=== PATIENT | female | born 1970 | race Caucasian/White ===

== ENCOUNTER 2016-10-14 13:56 | Emergency (ER) | payer OTHER ==
[~2016-10-14] VITALS: Ht 165.1 cm; Wt 77.1 kg
--- NOTE | ~2016-10-14 | CR63 ---
[facility] A Service of [facility] RADIOLOGY TEXT RESULTS PATIENT: ANTHONY CONNELLY LOCATION: [place] : [birth year] UNIT #: [id number] AGE: [address]: Anthony Toro APRN SEX: F ORDER DR: [id number] [facility]. [place], [place] [address] [id number] E MR#: [id number] Acc #: [id number] NAME: ANTHONY CONNELLY. : 1970 SEX: F STUDY DATE/TIME: 10/14/2016 14:21 UNIT: [facility] ROOM: STUDY DESCRIPTION: CR Chest 2 View Attending Physician: Anthony Toro A.P.R.N. Ordering Physician: Ed Ras Foreman M.D. Primary Care Physician: Wily Riddle M.D. MEDICAL IMAGING REPORT This report is preliminary unless electronic signature is present EXAM PA and lateral chest HISTORY Shortness of air, body aches, fatigue for three days COMPARISON 01/25/2016 FINDINGS PA and lateral examination of the chest upright shows a good expansion of the parenchyma with a normal distribution of the pulmonary vascularity. There is no indication of congestion, effusion, infiltrate, tumor, or nodular density. The pleural reflections and diaphragmatic contours are normal. The cardiac silhouette and mediastinal anatomy is within normal limits. IMPRESSION Normal chest. Dictated by... Son Kwan M.D. THIS IS AN ELECTRONICALLY VERIFIED REPORT Son Kwan M.D. at 10/14/2016 10:19 PM FEL/to TD: 10/14/2016 19:57 JOB #: [id number] [facility] A Service [facility] RADIOLOGY TEXT RESULTS PATIENT: ANTHONY CONNELLY LOCATION: [facility] : [birth year] UNIT #: [id number] AGE: [address]: Anthony Toro APRN SEX: F ORDER DR: MEDICAL IMAGING REPORT Page 1 of 1 COPY
[~2016-10-14 13:56] MED LIST: ALBUTEROL 0.5ML INH; ALBUTEROL MININEB NEB; ALBUTEROL17 GM INH; ANAPROX DS PO; AUGMENTIN875 MG PO; CELEXA20 MG PO; DIFLUCAN PO; DILAUDID 22 MG/1 ML; DILAUDID INFIL; DILAUDID PAIN PUMP; DILAUDID PO; FENOFIBRATE160 MG PO; FLEXERIL PO; GABAPENTIN PO; LEVAQUIN750 M1 PO; LIDOCAINE700 MG TOP; LIPITOR PO; LORTAB 10-5001 EACH PO; MEDROL PO; MELATONIN3 M4 PO; NEURONTIN300 MG PO; NEURONTIN600 MG PO; OXYCODON-ACETA1 EAC1 PO; OXYCODONE HCL10 MG PO; PREDNISONE PO; PREDNISONE10 MG PO; PREMARIN PO; ROBITUSSIN AC PO; SINGULAIR PO; SOMA; SOMA PO; TRICOR PO; TRIGLIDE160 M1; VITAMIN D250000 UNIT PO; VITAMIN D50000 UNIT; VOLTAREN75 MG PO; XANAFLEX PO; ZITHROMAX PO; ZOCOR20 MG PO; ZOLOFT100 MG PO; [UNRECOGNIZED DRUG - OTHER]; [UNRECOGNIZED DRUG - REMARK]
[2016-10-14 14:38] LABS: INFLUENZA A NEG (NEG); INFLUENZA B NEG (NEG)
[2016-10-14 15:04] LABS: BASOPHIL# 0.1 X10e3 (0-0.3); EOSINOPHIL# 0.4 X10e3 (0-0.7); EOSINOPHIL% 5.6 % (0.0-7.0); HEMATOCRIT 45.8 % (35.0-45.0); HEMOGLOBIN 15.8 gm/dL (12.0-16.0); LYMPHOCYTE# 1.8 X10e3 (1.0-3.5); LYMPHOCYTE% 25.3 % (17.0-45.0); MEAN CELL VOLUME 87.3 FL (83-96); MEAN CORPUSCULAR HGB CONC 34.4 g/dL (30-36); MEAN PLATELET VOLUME 8.2 FL (6.5-11.5); MONOCYTE# 1.3 X10e3 (0-1.0); MONOCYTE% 17.8 % (3.0-12.0); NEUTROPHIL# 3.7 X10e3 (1.5-7.1); NEUTROPHIL% 50.3 % (40-75); PLATELET COUNT 213 X10e3 (140-420); RED BLOOD COUNT 5.25 X10e (3.90-5.30); RED CELL DISTRIBUTION WIDTH 12.1 % (11.0-15.5); WHITE BLOOD COUNT 7.3 X10e3 (4.0-10.5)
[2016-10-14 15:12] LABS: DIFF IND NO
[2016-10-14 15:27] LABS: BUN/CREATININE RATIO 13.75; CREATININE SERUM 0.8 mg/dL (0.6-1.4); GLOM FILT RATE Estimated 87.3 mL/min (>60); POTASSIUM 3.6 mmol/L (3.5-5.1)
== END 2016-10-14 16:06 | disposition home or self-care (01) ==
LOC: CED 13:56 → CFTX 13:56
PROVIDERS: Nurse Practitioner
DX: J44.0 Chronic obstructive pulmonary disease with (acute) lower respiratory infection (principal); J20.9 Acute bronchitis, unspecified; F17.210 Nicotine dependence, cigarettes, uncomplicated; Z90.49 Acquired absence of other specified parts of digestive tract; Z90.710 Acquired absence of both cervix and uterus; Z88.5 Allergy status to narcotic agent; Z91.040 Latex allergy status
CPT/HCPCS: 36415; 71020; 80048; 85025; 87651; 87804; 94640; 96361; 96374; 96375; 99284; J2405; J2930

== ENCOUNTER 2016-10-19 21:15 | Emergency (ER) | payer OTHER ==
[~2016-10-19] VITALS: Ht 165.1 cm; Wt 77.1 kg
--- NOTE | ~2016-10-19 | EKG ---
PATIENT: ANTHONY CONNELLY UNIT #: [id number] Ventricular Rate: 78 BPM Atrial Rate: 78 BPM P-R Interval: 130 ms QRS Duration: 86 ms Q-T Interval: 372 ms QTC Calculation(Bezet): 424 ms P [place]: 66 degrees Calculated R [place]: 56 degrees Calculated T [place]: 15 degrees Diagnosis Line: Normal sinus rhythm Diagnosis Line: Normal ECG Diagnosis Line: No previous ECGs available Diagnosis Line: Confirmed by NEISHA DARDEN MD ([id number]) on 10/20/2016 Diagnosis Line: 7:37:23 PM INTERPRETING MD: KATALINA DUARTE
--- NOTE | ~2016-10-19 | CR72 ---
[facility] A Service of [facility] RADIOLOGY TEXT RESULTS PATIENT: ANTHONY CONNELLY LOCATION: [facility] : 66 UNIT #: [id number] AGE: [address]: Garrett Hayes MD SEX: F ORDER DR: [id number] [facility] [address] [place], [place] [address] [id number] E MR#: [id number] Acc #: [id number] NAME: ANTHONY CONNELLY : 1970 SEX: F STUDY DATE/TIME: 10/19/2016 23:34 UNIT: [facility] ROOM: STUDY DESCRIPTION: CR Chest Single View Portable Attending Physician: Garrett Hayes M.D. Ordering Physician: Garrett Hayes M.D. Primary Care Physician: Wily Riddle M.D. MEDICAL IMAGING REPORT This report is preliminary unless electronic signature is present EXAM Portable chest. HISTORY Chest pain today. FINDINGS The cardiac size and pulmonary vascularity are normal. No infiltrates or effusions. Minimal right upper thoracic curve. Surgical clips in the right upper quadrant. IMPRESSION No acute findings. No active disease. Dictated by... Forrest Ryan M.D. THIS IS AN ELECTRONICALLY VERIFIED REPORT Forrest Ryan M.D. at 10/20/2016 11:52 PM DFL/jenny TD: 10/20/2016 11:53 JOB #: [id number] MEDICAL IMAGING REPORT Page 1 of 1 COPY
[2016-10-19 22:24] LABS: BASOPHIL# 0.2 X10e3 (0-0.3); BASOPHIL% 1.2 % (0-2.5); DIFF IND NO; EOSINOPHIL# 0.9 X10e3 (0-0.7); EOSINOPHIL% 7.2 % (0.0-7.0); HEMATOCRIT 41.8 % (35.0-45.0); HEMOGLOBIN 14.6 gm/dL (12.0-16.0); LYMPHOCYTE# 4.2 X10e3 (1.0-3.5); LYMPHOCYTE% 32.4 % (17.0-45.0); MEAN CELL VOLUME 86.8 FL (83-96); MEAN CORPUSCULAR HEMOGLOBIN 30.3 PG (28-34); MEAN CORPUSCULAR HGB CONC 34.9 g/dL (30-36); MEAN PLATELET VOLUME 8.1 FL (6.5-11.5); MONOCYTE# 1.3 X10e3 (0-1.0); MONOCYTE% 10.4 % (3.0-12.0); NEUTROPHIL# 6.4 X10e3 (1.5-7.1); NEUTROPHIL% 48.8 % (40-75); PLATELET COUNT 274 X10e3 (140-420); RED BLOOD COUNT 4.81 X10e (3.90-5.30); RED CELL DISTRIBUTION WIDTH 12.3 % (11.0-15.5)
[2016-10-19 22:35] LABS: POC - TROPONIN <0.05 ng/mL (<=0.05)
[2016-10-19 22:39] LABS: PARTIAL THROMBOPLASTIN TIME 28.5 SECONDS (23.5-31.3); PROTHROMBIN TIME (PATIENT) 10.7 SECONDS (10.0-11.7)
[2016-10-19 23:00] LABS: ALBUMIN SERUM 3.9 g/dL (3.5-5.0); BILIRUBIN, DIRECT 0.1 mg/dL (0.0-0.2); BILIRUBIN,INDIRECT 0.5 mg/dL (0.0-0.9); BILIRUBIN,TOTAL 0.6 mg/dL (0.2-2.0); BUN/CREATININE RATIO 13.33; CALCIUM SERUM 8.4 mg/dL (8.4-10.2); CREATININE SERUM 0.6 mg/dL (0.6-1.4); GLOM FILT RATE Estimated 107.8 mL/min (>60); POTASSIUM 3.2 mmol/L (3.5-5.1); PROTEIN TOTAL SERUM 6.8 g/dL (6.0-8.3)
[2016-10-20 01:19] LABS: POC - CKMB <1.0 ng/mL (0.0-7.9); POC - TROPONIN <0.05 ng/mL (<=0.05)
== END 2016-10-20 01:37 | disposition home or self-care (01) ==
LOC: CED 21:15
PROVIDERS: Emergency Medicine
DX: R07.9 Chest pain, unspecified (principal); F17.200 Nicotine dependence, unspecified, uncomplicated
CPT/HCPCS: 36415; 71010; 80048; 80076; 82553; 84484; 85025; 85379; 85610; 85730; 93005; 96360; 99285